=== PATIENT | male | born 1965 | race African-American/Black ===

== ENCOUNTER 2016-12-05 09:56 | Emergency (ER) | payer SELFPAY ==
[~2016-12-05] VITALS: Ht 177.8 cm; Wt 97.7 kg
[~2016-12-05 09:56] MED LIST: ATACAND HCT 321 TAB PO; FLEXERIL5 MG PO; HCTZ 25MG TAB25 MG PO; NAPROSYN500 MG PO; NORCO 325 MG-51 TAB PO; PERCOCET 325 MG1 TA2 PO; PRINIVIL20 MG PO; PRINZIDE 12.5 M1 TAB PO; ZOFRAN 4MG T4 MG/TAB PO
[2016-12-05 10:04] VITALS: BP 158/102; PULSE 64; TEMP 98.2
[2016-12-05] MEDS ORDERED: PRINZIDE 12.5 M1 TA1 PO (10:08)
[2016-12-05] MEDS ORDERED: PRINZIDE 25 MG-1 TAB PO (10:40)
== END 2016-12-05 10:55 | disposition home or self-care (01) ==
LOC: COL.ER 09:56
DX: I10 Essential (primary) hypertension (principal); R51 Headache; T46.4X6A Underdosing of angiotensin-converting-enzyme inhibitors, initial encounter; Z91.138 Patient's unintentional underdosing of medication regimen for other reason; Z86.39 Personal history of other endocrine, nutritional and metabolic disease; F17.210 Nicotine dependence, cigarettes, uncomplicated

== ENCOUNTER → 2018-05-03 | Outpatient (CLI) | payer SELFPAY ==
[~2018-05-03] MED LIST changes: +PRINZIDE 12.5 M1 TA1 PO; +PRINZIDE 25 MG-1 TAB PO
[2018-05-03 12:57] LABS: COLLECTION METHOD CLEAN CATCH
[2018-05-03 13:00] LABS: HEMATOCRIT 42.6 % (42.0-52.0); HEMOGLOBIN 15.5 g/dl (13.5-18.0); MEAN CELL VOLUME 84 fl (80.0-100.0); MEAN CORPUSCULAR HEMOGLOBIN 31 pg (27.0-31.0); MEAN CORPUSCULAR HGB CONC 36 g/dl (33.0-37.0); MEAN PLATELET VOLUME 9.5 fl (7.4-10.4); PLATELET COUNT 210 K/mm3 (130-400); RED BLOOD COUNT 5.06 M/mm3 (4.20-5.60); REDCELL DISTRIBUTION WIDTH-CV 14.8 % (11.5-14.5)
[2018-05-03 13:04] LABS: PH 6 (5-8); SQUAMOUS EPITHELIAL None Seen /hpf; URINE APPEARANCE Clear; URINE BACTERIA None Seen /hpf; URINE BILIRUBIN Negative (NEGATIVE); URINE BLOOD Negative (NEGATIVE); URINE COLOR Yellow; URINE GLUCOSE Negative (NEGATIVE); URINE KETONE Trace (NEGATIVE); URINE LEUKOCYTE ESTERASE Negative (NEGATIVE); URINE NITRATE Negative (NEGATIVE); URINE PROTEIN(semi-quant) Negative (NEGATIVE); URINE RBC 0-2 /hpf; URINE WBC 0-2 /hpf
[2018-05-03 13:19] LABS: ALBUMIN 4.4 gm/dL (3.5-5.0); BILIRUBIN,TOTAL 0.9 mg/dL (0.0-1.0); CALCIUM 9.7 mg/dL (8.4-10.2); CHOLESTEROL RISK RATIO 2.2; CREATININE, serum 0.82 mg/dL (0.66-1.25); POTASSIUM 3.7 mmol/L (3.4-5.0); TOTAL PROTEIN 8.1 gm/dL (6.4-8.2)
[2018-05-03 14:30] LABS: PSA-TOTAL 1.3 ng/mL (0-4)
== END ==
LOC: COL.LAB 12:35
PROVIDERS: Pediatrics Adolescent Medicine
DX: I10 Essential (primary) hypertension (principal)
CPT/HCPCS: G0103

== ENCOUNTER 2018-07-01 10:24 | Emergency (ER) | payer SELFPAY ==
[~2018-07-01] VITALS: Ht 177.8 cm; Wt 106.4 kg
[2018-07-01 10:32] VITALS: TEMP 98.4
[2018-07-01 11:29] LABS: BASO % 0.2 % (0.0-2.0); EOS # 0.2 (0.0-0.7); EOS % 3.2 % (0-4.0); GRAN # 3.7 (1.4-6.5); GRAN % 65.1 % (42.2-75.2); HEMOGLOBIN 13.1 g/dl (13.5-18.0); LYMPH # 1.1 (1.2-3.4); LYMPH % 18.8 % (20.0-51.0); MEAN CELL VOLUME 82 fl (80.0-100.0); MEAN CORPUSCULAR HEMOGLOBIN 30 pg (27.0-31.0); MEAN CORPUSCULAR HGB CONC 37 g/dl (33.0-37.0); MEAN PLATELET VOLUME 9.9 fl (7.4-10.4); MONO # 0.7 (0.1-0.6); MONO % 12.3 % (1.7-9.3); PLATELET COUNT 124 K/mm3 (130-400); RED BLOOD COUNT 4.33 M/mm3 (4.20-5.60); REDCELL DISTRIBUTION WIDTH-CV 13.3 % (11.5-14.5)
[2018-07-01 11:33] LABS: HEMATOCRIT 35.6 % (42.0-52.0)
[2018-07-01 11:43] LABS: URIC ACID 5.9 mg/dL (3.5-8.5)
[2018-07-01 12:10] LABS: ERYTHROCYTE SEDIMENTATION RATE 24 mm/hr (0-30)
[2018-07-01] MEDS ORDERED: NORCO 325 MG-7.1 TAB PO (12:29)
[2018-07-01 12:56] VITALS: BP 150/103; PULSE 82
== END 2018-07-01 12:58 | disposition home or self-care (01) ==
LOC: COL.ER 10:24
PROVIDERS: Physician Assistant
DX: M25.562 Pain in left knee (principal); I10 Essential (primary) hypertension; F17.210 Nicotine dependence, cigarettes, uncomplicated
CPT/HCPCS: L1846

== ENCOUNTER 2018-09-24 16:37 | Emergency (ER) | payer SELFPAY ==
[~2018-09-24] VITALS: Ht 177.8 cm; Wt 94.1 kg
[~2018-09-24 16:37] MED LIST changes: +NORCO 325 MG-7.1 TAB PO
[2018-09-24 16:51] VITALS: TEMP 97.8
[2018-09-24 18:28] LABS: BASO # 0.1 (0.0-0.2); BASO % 0.9 % (0.0-2.0); EOS # 0.1 (0.0-0.7); EOS % 1.7 % (0-4.0); GRAN # 3.6 (1.4-6.5); GRAN % 62.2 % (42.2-75.2); HEMATOCRIT 39.7 % (42.0-52.0); HEMOGLOBIN 14.6 g/dl (13.5-18.0); LYMPH # 1.4 (1.2-3.4); LYMPH % 24.3 % (20.0-51.0); MEAN CELL VOLUME 83 fl (80.0-100.0); MEAN CORPUSCULAR HEMOGLOBIN 30 pg (27.0-31.0); MEAN CORPUSCULAR HGB CONC 37 g/dl (33.0-37.0); MEAN PLATELET VOLUME 10.1 fl (7.4-10.4); MONO # 0.6 (0.1-0.6); MONO % 10.7 % (1.7-9.3); PLATELET COUNT 297 K/mm3 (130-400); REDCELL DISTRIBUTION WIDTH-CV 14.9 % (11.5-14.5)
[2018-09-24 18:47] LABS: ALANINE AMINOTRANSFERASE 19 U/L (21-72); ALKALINE PHOSPHATASE 71 U/L (50-136); ANION GAP 13 mmol/L (7-16); AST,SGOT 27 U/L (15-37); BILIRUBIN,TOTAL 1.1 mg/dL (0.0-1.0); BLOOD UREA NITROGEN 8 mg/dL (9-20); CALCIUM 9.6 mg/dL (8.4-10.2); CARBON DIOXIDE 26 mmol/L (22-30); CHLORIDE 97 mmol/L (98-107); CREATININE, serum 0.87 mg/dL (0.66-1.25); GLUCOSE 57 mg/dL (74-106); POTASSIUM 3.9 mmol/L (3.4-5.0); SODIUM 137 mmol/L (137-145); TOTAL PROTEIN 7.2 gm/dL (6.4-8.2)
[2018-09-24 19:05] LABS: TROPONIN-I < 0.012 ng/mL (0.000-0.035)
[2018-09-24 20:30] VITALS: BP 159/98; PULSE 98
== END 2018-09-24 20:35 | disposition home or self-care (01) ==
LOC: COL.ER 16:37
PROVIDERS: Nurse Practitioner
DX: I10 Essential (primary) hypertension (principal); F17.210 Nicotine dependence, cigarettes, uncomplicated

== ENCOUNTER → 2019-05-06 | Outpatient (CLI) | payer SELFPAY ==
[2019-05-06 11:28] LABS: BILIRUBIN,TOTAL 0.4 mg/dL (0.0-1.0); CALCIUM 9.5 mg/dL (8.4-10.2); CREATININE, serum 0.88 (0.66-1.25); POTASSIUM 3.9 mmol/L (3.4-5.0); TOTAL PROTEIN 7.2 gm/dL (6.4-8.2)
[2019-05-06 11:53] LABS: ALBUMIN 4.1 gm/dL (3.5-5.0)
== END ==
LOC: ZCOL.LAB 10:24
DX: Z01.89 Encounter for other specified special examinations (principal)

== ENCOUNTER 2019-10-06 23:20 | Emergency (ER) | payer SELFPAY ==
[~2019-10-06] VITALS: Ht 177.8 cm; Wt 127.7 kg
[2019-10-07] MEDS ORDERED: VOLTAREN 75 DR75 MG PO (01:57)
[2019-10-07 02:00] VITALS: BP 126/86; PULSE 75; TEMP 97.1
== END 2019-10-07 02:05 | disposition home or self-care (01) ==
LOC: COL.ER 23:20
DX: R09.1 Pleurisy (principal); I10 Essential (primary) hypertension; F17.210 Nicotine dependence, cigarettes, uncomplicated
CPT/HCPCS: J1885

== ENCOUNTER 2019-11-04 13:40 | Emergency (ER) | payer SELFPAY ==
[~2019-11-04] VITALS: Ht 177.8 cm; Wt 127.7 kg
[~2019-11-04 13:40] MED LIST changes: +VOLTAREN 75 DR75 MG PO
[2019-11-04 13:46] VITALS: TEMP 98.8
[2019-11-04 14:27] LABS: BASO % 0.3 % (0.0-2.0); EOS # 0.1 (0.0-0.7); EOS % 1.3 % (0-4.0); GRAN # 5.1 (1.4-6.5); GRAN % 64.9 % (42.2-75.2); HEMATOCRIT 41.1 % (42.0-52.0); LYMPH # 1.8 (1.2-3.4); LYMPH % 22.6 % (20.0-51.0); MEAN CELL VOLUME 81 fl (80.0-100.0); MEAN CORPUSCULAR HEMOGLOBIN 29 pg (27.0-31.0); MEAN CORPUSCULAR HGB CONC 37 g/dl (33.0-37.0); MEAN PLATELET VOLUME 9.6 fl (7.4-10.4); MONO # 0.8 (0.1-0.6); MONO % 10.5 % (1.7-9.3); PLATELET COUNT 273 K/mm3 (130-400); REDCELL DISTRIBUTION WIDTH-CV 15.4 % (11.5-14.5)
[2019-11-04 14:47] LABS: ALBUMIN 4.3 gm/dL (3.5-5.0); BILIRUBIN,TOTAL 0.6 mg/dL (0.0-1.0); C-REACTIVE PROTEIN 0.9 mg/dL (0.0-0.9); CALCIUM 9.9 mg/dL (8.4-10.2); CREATININE, serum 0.86 (0.66-1.25); POTASSIUM 3.9 mmol/L (3.4-5.0); TOTAL PROTEIN 8.1 gm/dL (6.4-8.2)
[2019-11-04] MEDS ORDERED: ZOFRAN ODT4 MG PO (15:01)
[2019-11-04 15:23] VITALS: BP 159/108; PULSE 69
== END 2019-11-04 15:30 | disposition home or self-care (01) ==
LOC: COL.ER 13:40
PROVIDERS: Emergency Medicine
DX: R19.7 Diarrhea, unspecified (principal); R11.2 Nausea with vomiting, unspecified; I10 Essential (primary) hypertension; F17.210 Nicotine dependence, cigarettes, uncomplicated
CPT/HCPCS: J2405; J2550; J7030

== ENCOUNTER 2020-02-12 12:04 | Emergency (ER) | payer SELFPAY ==
[~2020-02-12] VITALS: Ht 177.8 cm; Wt 120.5 kg
[~2020-02-12 12:04] MED LIST changes: +ZOFRAN ODT4 MG PO
[2020-02-12 12:11] VITALS: TEMP 98.6
[2020-02-12] MEDS ORDERED: COLCRYS0.6 MG PO (13:25)
[2020-02-12 13:40] VITALS: BP 158/92; PULSE 88
== END 2020-02-12 13:43 | disposition home or self-care (01) ==
LOC: COL.ER 12:04
DX: M79.672 Pain in left foot (principal); I10 Essential (primary) hypertension; F17.210 Nicotine dependence, cigarettes, uncomplicated

== ENCOUNTER 2021-06-29 11:22 | Emergency (ER) | payer SELFPAY ==
[~2021-06-29] VITALS: Ht 177.8 cm; Wt 113.6 kg
[~2021-06-29 11:22] MED LIST changes: +COLCRYS0.6 MG PO
[2021-06-29 11:44] VITALS: TEMP 98.9
[2021-06-29 12:23] LABS: BASO % 0.5 % (0.0-2.0); EOS # 0.1 K/mm3 (0.0-0.7); EOS % 2.6 % (0-4.0); GRAN # 2.3 K/mm3 (1.4-6.5); GRAN % 54.1 % (42.2-75.2); HEMATOCRIT 40.4 % (42.0-52.0); HEMOGLOBIN 15.1 g/dl (13.5-18.0); LYMPH # 1.2 K/mm3 (1.2-3.4); MEAN CELL VOLUME 83 fl (80.0-100.0); MEAN CORPUSCULAR HEMOGLOBIN 31 pg (27.0-31.0); MEAN CORPUSCULAR HGB CONC 37 g/dl (33.0-37.0); MEAN PLATELET VOLUME 10.7 fl (7.4-10.4); MONO # 0.7 K/mm3 (0.1-0.6); MONO % 15.6 % (1.7-9.3); PLATELET COUNT 187 K/mm3 (130-400); RED BLOOD COUNT 4.86 M/mm3 (4.20-5.60); REDCELL DISTRIBUTION WIDTH-CV 13.9 % (11.5-14.5)
[2021-06-29 12:38] LABS: BILIRUBIN,TOTAL 0.9 mg/dL (0.2-1.2); C-REACTIVE PROTEIN 0.99 mg/dL (0.00-0.50); CALCIUM 9.4 mg/dL (8.4-10.2); CREATININE, serum 0.92 mg/dL (0.72-1.25); TOTAL PROTEIN 7.6 gm/dL (6.2-8.1)
[2021-06-29 12:51] LABS: COLLECTION METHOD CLEAN CATCH
[2021-06-29 12:57] LABS: MUCOUS Present (NOT PRESENT); PH 6 (5-8); SQUAMOUS EPITHELIAL 0-2 /hpf (0-10); URINE APPEARANCE Clear (CLEAR/HAZY); URINE BACTERIA None Seen (NONE SEEN); URINE BILIRUBIN Negative (NEGATIVE); URINE BLOOD Negative (NEGATIVE); URINE COLOR Yellow (YELLOW); URINE GLUCOSE Negative (NEGATIVE); URINE KETONE Negative (NEGATIVE); URINE LEUKOCYTE ESTERASE Negative (NEGATIVE); URINE NITRATE Negative (NEGATIVE); URINE PROTEIN(semi-quant) Negative (NEGATIVE); URINE RBC None Seen /hpf (0-2)
[2021-06-29] MEDS ORDERED: ZOFRAN ODT4 MG PO (13:15)
[2021-06-29 14:00] VITALS: BP 167/103; PULSE 86
== END 2021-06-29 14:04 | disposition home or self-care (01) ==
LOC: COL.ER 11:22
PROVIDERS: Physician Assistant
DX: K29.70 Gastritis, unspecified, without bleeding (principal); I10 Essential (primary) hypertension; M10.9 Gout, unspecified; F17.210 Nicotine dependence, cigarettes, uncomplicated; Z20.822 Contact with and (suspected) exposure to COVID-19; Z79.899 Other long term (current) drug therapy
CPT/HCPCS: J2405; J7030

== ENCOUNTER 2021-08-17 10:09 | Emergency (ER) | payer SELFPAY ==
[~2021-08-17] VITALS: Ht 177.8 cm; Wt 118.2 kg
[2021-08-17 10:21] VITALS: TEMP 100
[2021-08-17 10:56] LABS: BASO % 0.3 % (0.0-2.0); EOS # 0.1 K/mm3 (0.0-0.7); EOS % 1.4 % (0.0-4.0); GRAN # 5.2 K/mm3 (1.4-6.5); GRAN % 71.4 % (42.2-75.2); LYMPH # 1.1 K/mm3 (1.2-3.4); LYMPH % 15.1 % (20.0-51.0); MEAN CELL VOLUME 83 fl (80.0-100.0); MEAN CORPUSCULAR HEMOGLOBIN 30 pg (27-31); MEAN CORPUSCULAR HGB CONC 37 g/dl (33.0-37.0); MEAN PLATELET VOLUME 9.8 fl (7.4-10.4); MONO # 0.8 K/mm3 (0.1-0.6); MONO % 11.5 % (1.7-9.3); PLATELET COUNT 337 K/mm3 (130-400)
[2021-08-17 11:11] LABS: ALBUMIN 3.3 gm/dL (3.5-5.0); BILIRUBIN,TOTAL 0.6 mg/dL (0.2-1.2); C-REACTIVE PROTEIN 7.99 mg/dL (0.00-0.50); CALCIUM 9.4 mg/dL (8.4-10.2); CREATININE, serum 0.84 mg/dL (0.72-1.25); POTASSIUM 3.4 mmol/L (3.5-4.5); TOTAL PROTEIN 7.7 gm/dL (6.2-8.1)
[2021-08-17 11:24] LABS: ERYTHROCYTE SEDIMENTATION RATE 46 mm/hr (0-30)
[2021-08-17 12:29] LABS: SYNOVIAL FL. MONONUCLEAR 5.3 % (0-75)
[2021-08-17 12:34] LABS: SYNOVIAL FLUID WBC 39210 /mm3 (200-600)
[2021-08-17 12:35] LABS: SYNOVIAL FLUID APPEARANCE HAZY; SYNOVIAL FLUID COLOR YELLOW; SYNOVIAL FLUID RBC 4000 /mm3 (0-0)
[2021-08-17] MEDS ORDERED: PREDNISONE20 MG PO (12:55)
[2021-08-17] MEDS ORDERED: PERCOCET 325 MG1 TA2 PO (12:55)
[2021-08-17] MEDS ORDERED: MITIGARE0.6 MG PO (12:57)
[2021-08-17 13:20] VITALS: BP 127/95; PULSE 81
== END 2021-08-17 13:23 | disposition home or self-care (01) ==
LOC: COL.ER 10:09
PROVIDERS: Personal Emergency Response Attendant
DX: M10.061 Idiopathic gout, right knee (principal); I10 Essential (primary) hypertension; Z79.899 Other long term (current) drug therapy

== ENCOUNTER 2021-11-17 16:36 | Emergency (ER) | payer OTHER ==
[~2021-11-17] VITALS: Ht 177.8 cm; Wt 118.2 kg
[~2021-11-17 16:36] MED LIST changes: +MITIGARE0.6 MG PO; +PREDNISONE20 MG PO
[2021-11-17 16:58] VITALS: TEMP 99.4
[2021-11-17 18:29] LABS: ALBUMIN 4.2 gm/dL (3.5-5.0); BILIRUBIN,TOTAL 1.1 mg/dL (0.2-1.2); C-REACTIVE PROTEIN 0.4 mg/dL (0.00-0.50); CALCIUM 9.5 mg/dL (8.4-10.2); CREATININE, serum 0.83 mg/dL (0.72-1.25); POTASSIUM 4.7 mmol/L (3.5-4.5); TOTAL PROTEIN 7.8 gm/dL (6.2-8.1)
[2021-11-17 18:35] LABS: BASO % 0.4 % (0.0-2.0); EOS % 0.4 % (0.0-4.0); GRAN # 3.3 K/mm3 (1.4-6.5); GRAN % 67.6 % (42.2-75.2); HEMATOCRIT 42.4 % (42.0-52.0); LYMPH # 0.8 K/mm3 (1.2-3.4); LYMPH % 16.9 % (20.0-51.0); MEAN CELL VOLUME 82 fl (80.0-100.0); MEAN CORPUSCULAR HEMOGLOBIN 31 pg (27-31); MEAN CORPUSCULAR HGB CONC 38 g/dl (33.0-37.0); MEAN PLATELET VOLUME 11.2 fl (7.4-10.4); MONO # 0.7 K/mm3 (0.1-0.6); MONO % 14.5 % (1.7-9.3); PLATELET COUNT 160 K/mm3 (130-400); RED BLOOD COUNT 5.19 M/mm3 (4.20-5.60); REDCELL DISTRIBUTION WIDTH-CV 15.2 % (11.5-14.5)
[2021-11-17 18:45] LABS: COLLECTION METHOD CLEAN CATCH
[2021-11-17 18:51] LABS: MUCOUS Present (NOT PRESENT); PH 7 (5-8); SQUAMOUS EPITHELIAL 0-2 /hpf (0-10); URINE APPEARANCE Clear (CLEAR/HAZY); URINE BACTERIA None Seen /hpf (NONE SEEN); URINE BILIRUBIN Negative (NEGATIVE); URINE BLOOD Negative (NEGATIVE); URINE COLOR Yellow (YELLOW); URINE GLUCOSE Negative (NEGATIVE); URINE KETONE Negative (NEGATIVE); URINE LEUKOCYTE ESTERASE Negative (NEGATIVE); URINE NITRATE Negative (NEGATIVE); URINE PROTEIN(semi-quant) Negative (NEGATIVE); URINE RBC 0-2 /hpf (0-2); URINE UROBILINOGEN Negative (NEGATIVE)
[2021-11-17 20:26] VITALS: BP 144/99; PULSE 91
== END 2021-11-17 20:28 | disposition home or self-care (01) ==
LOC: COL.ER 16:36
PROVIDERS: Nurse Practitioner
DX: R10.31 Right lower quadrant pain (principal); R11.2 Nausea with vomiting, unspecified; R19.7 Diarrhea, unspecified; F17.200 Nicotine dependence, unspecified, uncomplicated
CPT/HCPCS: J2405; J7030; Q9967

== ENCOUNTER 2022-10-11 09:52 | Emergency (ER) | payer SELFPAY ==
[~2022-10-11] VITALS: Ht 177.8 cm; Wt 109.1 kg
[2022-10-11 09:57] VITALS: BP 132/87; PULSE 80; TEMP 98.3
[2022-10-11] MEDS ORDERED: PRINZIDE 25 MG-1 TAB PO (10:19)
[2022-10-11] MEDS ORDERED: ZOFRAN ODT4 MG PO (11:03)
== END 2022-10-11 11:21 | disposition home or self-care (01) ==
LOC: COL.ER 09:52
DX: J06.9 Acute upper respiratory infection, unspecified (principal); R11.2 Nausea with vomiting, unspecified; Z20.822 Contact with and (suspected) exposure to COVID-19